=== PATIENT | male | born 1965 | race Hispanic/Latino ===

== ENCOUNTER → 2020-09-02 | Outpatient (CLI) | payer MEDICARE, OTHER ==
[~2020-09-02] MED LIST: AMLODIPINE BESYL5 MG PO; ATORVASTATIN CA20 MG PO; AURYXIA210 MG PO; CALCITRIOL0.5 MCG PO; CALCIUM ACETAT667 MG PO; DIALYVITE 8000.8 M1 PO; FUROSEMIDE40 MG PO; SENSIPAR30 MG PO; VELTASSA8.4 GM PEG
== END ==
LOC: DX 11:34 → EDSTATUS 09-05 12:30
PROVIDERS: ATTEND Surgery
DX: Z01.812 Encounter for preprocedural laboratory examination (principal); Z01.818 Encounter for other preprocedural examination; Z20.822 Contact with and (suspected) exposure to COVID-19; K43.2 Incisional hernia without obstruction or gangrene
CPT/HCPCS: 93005; U0002